=== PATIENT | male | born 1980 | race Caucasian/White ===

== ENCOUNTER 2016-10-20 10:56 | Emergency (ER) | payer SELFPAY ==
[2016-10-20 12:16] LABS: Basophils % (Auto) 0.4 % (0.0-1.8); Eosinophils % (Auto) 0.9 % (0.0-4.3); Hematocrit 39.8 % (35.5-45.6); Hemoglobin 13.2 gm/dl (11.8-15.2); Mean Corpuscular HGB Conc 33 % (32-34); Mean Corpuscular Hemoglobin 31 pg (28-32); Mean Corpuscular Volume 94 fl (84-94); Platelet Count 202 K/mm3 (140-440); Red Blood Count 4.25 M/mm3 (3.65-5.03); Red Cell Distribution Width 13.5 % (13.2-15.2); White Blood Count 7.9 K/mm3 (4.5-11.0)
[2016-10-20 12:26] LABS: INR 1.02 (0.87-1.13)
[2016-10-20 12:33] LABS: Alanine Aminotransferase 10 units/L (7-56); Albumin 4.2 g/dL (3.9-5); Albumin/Globulin Ratio 1.1 %; Alkaline Phosphatase 54 units/L (35-129); Anion Gap 18 mmol/L; BUN/Creatinine Ratio 12.85; Bilirubin,Total 0.4 mg/dL (0.1-1.2); Blood Urea Nitrogen 9 mg/dL (9-20); Calcium 9.4 mg/dL (8.4-10.2); Carbon Dioxide 24 mmol/L (22-30); Glucose 97 mg/dL (75-100); Potassium 3.8 mmol/L (3.6-5.0); Sodium 140 mmol/L (137-145); Total Protein 7.9 g/dL (6.3-8.2)
[2016-10-20] MEDS ORDERED: MOTRIN PO ONE (16:07)
[2016-10-20] MEDS ORDERED: CLEOCIN PO ONE (16:56)
--- NOTE | 2016-10-20 16:59 | Emergency Department Report ---
ED ENT HPI - General Chief complaint: Dental/Oral Stated complaint: LOWER JAW ABCESS Time Seen by Provider: 10/20/16 16:06 Source: patient Mode of arrival: Ambulatory Limitations: No Limitations - History of Present Illness MD complaint: tooth pain - Related Data Previous Rx's Medication Instructions Recorded Last Taken Type Clindamycin [Clindamycin CAP] 300 mg PO Q8H #30 cap 10/20/16 Unknown Rx Ibuprofen [Motrin 800 MG tab] 800 mg PO Q8HR PRN #30 cap 10/20/16 Unknown Rx Allergies Allergy/AdvReac Type Severity Reaction Status Date / Time No Known Allergies Allergy Unverified 10/20/16 11:23 ED Dental HPI - General Chief complaint: Dental/Oral Stated complaint: LOWER JAW ABCESS Time Seen by Provider: 10/20/16 16:06 Source: patient Mode of arrival: Ambulatory Limitations: No Limitations - Related Data Previous Rx's Medication Instructions Recorded Last Taken Type Clindamycin [Clindamycin CAP] 300 mg PO Q8H #30 cap 10/20/16 Unknown Rx Ibuprofen [Motrin 800 MG tab] 800 mg PO Q8HR PRN #30 cap 10/20/16 Unknown Rx Allergies Allergy/AdvReac Type Severity Reaction Status Date / Time No Known Allergies Allergy Unverified 10/20/16 11:23 ED Review of Systems ROS: Stated complaint: LOWER JAW ABCESS Other details as noted in HPI ED Past Medical Hx - Past Medical History Previous Medical History?: No - Surgical History Additional Surgical History: fx femur-1997 - Social History Smoking Status: Current Every Day Smoker Substance Use Type: Alcohol - Medications Home Medications: Home Medications Medication Instructions Recorded Confirmed Last Taken Type Clindamycin [Clindamycin CAP] 300 mg PO Q8H #30 cap 10/20/16 Unknown Rx Ibuprofen [Motrin 800 MG tab] 800 mg PO Q8HR PRN #30 cap 10/20/16 Unknown Rx ED Physical Exam - General Limitations: No Limitations ED Course Vital Signs 10/20/16 10/20/16 10/20/16 11:20 17:03 17:47 Temperature 99.0 F Pulse Rate 68 71 Respiratory 20 16 16 Rate Blood Pressure 140/82 Blood Pressure 138/76 [Left] O2 Sat by Pulse 100 98 Oximetry ED Medical Decision Making - Lab Data Result diagrams: 10/20/16 11:34 10/20/16 11:34 Critical care attestation.: If time is entered above; I have spent that time in minutes in the direct care of this critically ill patient, excluding procedure time. ED Disposition Clinical Impression: Dental abscess Tooth fracture Qualifiers: Encounter type: initial encounter Disposition: DISCHARGED TO HOME OR SELFCARE Condition: Stable Instructions: Dental Abscess (ED) Additional Instructions: Very important for you to continue all medication as prescribed follow up with the dentist immediately to have a further evaluation. Prescriptions: Clindamycin [Clindamycin CAP] 300 mg PO Q8H #30 cap Ibuprofen [Motrin 800 MG tab] 800 mg PO Q8HR PRN #30 cap PRN Reason: Pain Referrals: [facility] [Outside] - 3-5 Days [facility] [Outside] - 3-5 Days [facility] [Outside] - 3-5 Days PRIMARY CARE, [Primary Care Provider] - 3-5 Days Forms: Work/School Release Form(ED)
--- NOTE | 2016-10-20 17:36 | Emergency Department Report ---
Entered by HARRISON CRUZ, acting as scribe for GILBERT RAINES PA. ED ENT HPI - General Chief complaint: Dental/Oral Stated complaint: LOWER JAW ABCESS Source: patient Mode of arrival: Ambulatory Limitations: No Limitations - History of Present Illness Initial comments: 36 year old male presents to the ED for evaluation of left lower dental pain and abscess for 7 days. Patient has not seen a dentist since symptom onset. He also reports Hx of broken left lower tooth that did nor receive follow up care. Reports associated subjective fever and nausea. Pain is mildly alleviated with ibuprofen. Denies difficulty swallowing and fever. NKDA. PRESTON complaint: tooth pain, other (dental abscess) Onset/Timin -: days(s) Location: tooth # (17, 19, 20), other Quality: constant Improves with: NSAID (ibuprofen, mildly) Worsens with: none Context- Dental: poor dental care, other (history of left lower broken tooth) Associated Symptoms: fever (subjective), gum swelling, toothache, other (dental abscess). denies: pain with swallowing, sore throat - Related Data Previous Rx's Medication Instructions Recorded Last Taken Type Clindamycin [Clindamycin CAP] 300 mg PO Q8H #30 cap 10/20/16 Unknown Rx Ibuprofen [Motrin 800 MG tab] 800 mg PO Q8HR PRN #30 cap 10/20/16 Unknown Rx Allergies Allergy/AdvReac Type Severity Reaction Status Date / Time No Known Allergies Allergy Unverified 10/20/16 11:23 ED Dental HPI - General Chief complaint: Dental/Oral Stated complaint: LOWER JAW ABCESS Source: patient Mode of arrival: Ambulatory Limitations: No Limitations - Related Data Previous Rx's Medication Instructions Recorded Last Taken Type Clindamycin [Clindamycin CAP] 300 mg PO Q8H #30 cap 10/20/16 Unknown Rx Ibuprofen [Motrin 800 MG tab] 800 mg PO Q8HR PRN #30 cap 10/20/16 Unknown Rx Allergies Allergy/AdvReac Type Severity Reaction Status Date / Time No Known Allergies Allergy Unverified 10/20/16 11:23 ED Review of Systems Comment: All other systems reviewed and negative Constitutional: fever (subjective). denies: chills ENT: dental pain (left lower dental pain and abscess, gum swelling). denies: ear pain, throat pain, other (difficulty swallowing) Respiratory: denies: shortness of breath Cardiovascular: denies: chest pain Gastrointestinal: nausea. denies: abdominal pain, vomiting ED Past Medical Hx - Past Medical History Previous Medical History?: No - Surgical History Additional Surgical History: fx femur-1997 - Social History Smoking Status: Current Every Day Smoker Substance Use Type: Alcohol - Medications Home Medications: Home Medications Medication Instructions Recorded Confirmed Last Taken Type Clindamycin [Clindamycin CAP] 300 mg PO Q8H #30 cap 10/20/16 Unknown Rx Ibuprofen [Motrin 800 MG tab] 800 mg PO Q8HR PRN #30 cap 10/20/16 Unknown Rx ED Physical Exam - General Limitations: No Limitations General appearance: alert, in no apparent distress - Head Head exam: Present: atraumatic, normocephalic - Eye Eye exam: Present: PERRL, EOMI - ENT ENT exam: Present: mucous membranes moist, TM's normal bilaterally - Expanded ENT Exam Expanded Mouth exam: Present: normal external inspection Teeth exam: Present: fractured tooth # (17, 19, and 20), dental tenderness # (17 , 19, and 20), gingival enlargement Throat exam: Negative: tonsillar erythema, tonsillomegaly, tonsillar exudate - Neck Neck exam: Present: normal inspection, full ROM (supple). Absent: lymphadenopathy, thyromegaly - Respiratory Respiratory exam: Present: normal lung sounds bilaterally. Absent: respiratory distress, wheezes, rales, rhonchi - Cardiovascular Cardiovascular Exam: Present: regular rate, normal rhythm, normal heart sounds - Neurological Exam Neurological exam: Present: alert, oriented X3 - Psychiatric Psychiatric exam: Present: normal affect, normal mood - Skin Skin exam: Present: warm, dry, intact. Absent: rash ED Course Vital Signs 10/20/16 10/20/16 11:20 17:03 Temperature 99.0 F Pulse Rate 68 Respiratory 20 16 Rate Blood Pressure 140/82 O2 Sat by Pulse 100 Oximetry ED Medical Decision Making - Lab Data Result diagrams: 10/20/16 11:34 10/20/16 11:34 - Medical Decision Making 36 year old male presents to ED complaining of left lower dental pain and abscess for 7 days. After detailed history and physical exam, clinical impression is dental abscess, dental fracture. CBC results were normal, indicating no acute infection. Patient was instructed to follow up with a dentist. ED Disposition Clinical Impression: Dental abscess Tooth fracture Qualifiers: Encounter type: initial encounter Disposition: DISCHARGED TO HOME OR SELFCARE Is pt being admited?: No Does the pt Need Aspirin: No Condition: Stable Instructions: Dental Abscess (ED) Additional Instructions: Very important for you to continue all medication as prescribed follow up with the dentist immediately to have a further evaluation. Prescriptions: Clindamycin [Clindamycin CAP] 300 mg PO Q8H #30 cap Ibuprofen [Motrin 800 MG tab] 800 mg PO Q8HR PRN #30 cap PRN Reason: Pain Referrals: PRIMARY CARE,MD [Primary Care Provider] - 3-5 Days [facility] [Outside] - 3-5 Days [facility] [Outside] - 3-5 Days [facility] [Outside] - 3-5 Days Forms: Work/School Release Form(ED) This documentation as recorded by the ANTHONY martin REBEKAH,accurately reflects the service I personally performed and the decisions made by ,GILBERT RAINES PA.
[2016-10-20 17:47] VITALS: BP 138/76
== END 2016-10-20 17:40 | disposition home or self-care (01) ==
LOC: ED 10:56
DX: K04.7 Periapical abscess without sinus (principal); K03.81 Cracked tooth; F17.200 Nicotine dependence, unspecified, uncomplicated
CPT/HCPCS: 36415; 80053; 82140; 82805; 85025; 85610; 87040; 99284